=== PATIENT | male | born 1980 | race Caucasian/White ===

== ENCOUNTER 2017-03-09 21:43 | Inpatient (IN) | payer SELFPAY ==
[~2017-03-09] VITALS: Ht 172.7 cm; Wt 68.2 kg
[2017-03-09] MEDS ORDERED: SODIUM CHLOR 0.9% 1000 ML INJ 1,000 ML IV ONE (21:50)
[2017-03-09] MEDS ORDERED: NALOXONE HCL 2 MG/2 ML VIAL ONE (21:51)
--- NOTE | 2017-03-09 21:57 | PD ---
HPI Chief Complaint: Alcohol/Drug Intoxication Time Seen by Provider: 21:50 Travel History International Travel<30 days: No Contact w/Intl Traveler<30days: No Traveled to known affect area: No History of Present Illness HPI 37-year-old male with history of drug abuse, presents to the ER today brought in by EMS after he was found unresponsive by family. EMS state that he was initially apneic, given Narcan with good response to a GCS of 14. They have had to give him several doses of Narcan in route because of decreased responsiveness after a period of observation. He denies ingesting any medications or drugs. Modifying Factors: None Associated Signs & Symptoms: Suspected opiate overdose, responsive to Narcan Risk Factors: History of drug abuse [facility] Social History Tobacco Use: Yes Allergies-Medications (Allergen,Severity, Reaction): Coded Allergies: No Known Allergies (Unverified , 03/09/17) Reported Meds & Prescriptions Reported Meds & Active Scripts Active No Active Prescriptions or Reported Medications Review of Systems ROS Limitations: Intoxication Except as stated in HPI: all other systems reviewed are Neg Physical Exam Narrative GENERAL: Well-developed young male patient who is currently lethargic, answering some questions. In moderate distress. SKIN: Focused skin assessment warm/dry. HEAD: Atraumatic. Normocephalic. EYES: Pupils equal and round. No scleral icterus. No injection or drainage. ENT: No nasal bleeding or discharge. Mucous membranes pink and moist. NECK: Trachea midline. No JVD. CARDIOVASCULAR: Regular rate and rhythm. No murmur appreciated. RESPIRATORY: No accessory muscle use. Clear to auscultation. Breath sounds equal bilaterally. GASTROINTESTINAL: Abdomen soft, non-tender, nondistended. Hepatic and splenic margins not palpable. MUSCULOSKELETAL: No obvious deformities. No clubbing. No cyanosis. No edema. NEUROLOGICAL: Awake and alert. No obvious cranial nerve deficits. Motor grossly within normal limits. Normal speech. PSYCHIATRIC: Appropriate mood and affect; insight and judgment normal. Data Data Last Documented VS Vital Signs Date Time Temp Pulse Resp B/P Pulse Ox O2 Delivery O2 Flow Rate FiO2 03/09/17 23:21 101 16 129/71 99 Nasal Cannula 2 03/09/17 22:00 98.4 Orders Electrocardiogram (03/09/17 21:50) Complete Blood Count With Diff (03/09/17 21:50) Comprehensive Metabolic Panel (03/09/17 21:50) Urinalysis - C+S If Indicated (03/09/17 21:50) Iv Access Insert/Monitor (03/09/17 21:50) Ecg Monitoring (03/09/17 21:50) Oximetry (03/09/17 21:50) Naloxone Inj (Narcan Inj) (03/09/17 22:00) Sodium Chloride 0.9% Flush (Ns Flush) (03/09/17 22:00) Sodium Chlor 0.9% 1000 Ml Inj (Ns 1000 M (03/09/17 21:50) Drug Screen, Random Urine (03/09/17 21:50) Alcohol (Ethanol) (03/09/17 21:50) Salicylates (Aspirin) (03/09/17 21:50) Tylenol (Acetaminophen) (03/09/17 21:50) Naloxone Inj (Narcan Inj) (03/09/17 21:51) Naloxone Inj (Narcan Inj) (03/09/17 23:30) Labs Laboratory Tests Test 03/09/17 03/09/17 22:00 22:05 White Blood Count 12.7 TH/MM3 Red Blood Count 4.84 MIL/MM3 Hemoglobin 13.6 GM/DL Hematocrit 42.1 % Mean Corpuscular Volume 87.0 FL Mean Corpuscular Hemoglobin 28.1 PG Mean Corpuscular Hemoglobin 32.3 % Concent Red Cell Distribution Width 14.0 % Platelet Count 155 TH/MM3 Mean Platelet Volume 11.7 FL Neutrophils (%) (Auto) 61.8 % Lymphocytes (%) (Auto) 27.1 % Monocytes (%) (Auto) 10.3 % Eosinophils (%) (Auto) 0.4 % Basophils (%) (Auto) 0.4 % Neutrophils # (Auto) 7.8 TH/MM3 Lymphocytes # (Auto) 3.4 TH/MM3 Monocytes # (Auto) 1.3 TH/MM3 Eosinophils # (Auto) 0.1 TH/MM3 Basophils # (Auto) 0.1 TH/MM3 CBC Comment DIFF FINAL Differential Comment Sodium Level 142 MEQ/L Potassium Level 3.4 MEQ/L Chloride Level 105 MEQ/L Carbon Dioxide Level 27.7 MEQ/L Anion Gap 9 MEQ/L Blood Urea Nitrogen 15 MG/DL Creatinine 1.14 MG/DL Estimat Glomerular Filtration 73 ML/MIN Rate Random Glucose 170 MG/DL Calcium Level 8.3 MG/DL Total Bilirubin 0.4 MG/DL Aspartate Amino Transf 109 U/L (AST/SGOT) Alanine Aminotransferase 47 U/L (ALT/SGPT) Alkaline Phosphatase 75 U/L Total Protein 7.2 GM/DL Albumin 3.8 GM/DL Acetaminophen Level LESS THAN 2.0 MCG/ML Ethyl Alcohol Level LESS THAN 3 MG/DL Salicylates Level LESS THAN 1.7 MG/DL MDM Medical Decision Making Medical Screen Exam Complete: Yes Emergency Medical Condition: Yes Medical Record Reviewed: Yes Interpretation(s) Laboratory Tests Test 03/09/17 03/09/17 22:00 22:05 White Blood Count 12.7 TH/MM3 (4.0-11.0) Mean Platelet Volume 11.7 FL (7.0-11.0) Monocytes (%) (Auto) 10.3 % (0.0-8.0) Neutrophils # (Auto) 7.8 TH/MM3 (1.8-7.7) Monocytes # (Auto) 1.3 TH/MM3 (0-0.9) Potassium Level 3.4 MEQ/L (3.5-5.1) Estimat Glomerular Filtration 73 ML/MIN (>89) Rate Random Glucose 170 MG/DL (74-106) Calcium Level 8.3 MG/DL (8.5-10.1) Aspartate Amino Transf 109 U/L (15-37) (AST/SGOT) Acetaminophen Level LESS THAN 2.0 MCG/ML (10.0-30.0) Salicylates Level LESS THAN 1.7 MG/DL (2.8-20.0) Differential Diagnosis Suspected opiate overdoserule out coingestions versus metabolic issues Narrative Course Patient became lethargic in the ER and his saturations started to drop. He was given another 2 mg of Narcan and awakens. He now admits that he had taken several Lortabs and Percocet and cocaine today. At 11 PM, nurse for the patient tells me again that the patient is becoming lethargic and apneic and patient was given a second dose of 2 mg of Narcan. At this point, my plan would be to admit the patient for further treatment of opiate overdose. Considering he has required multiple doses of Narcan, Narcan drip will be initiated. Case was discussed with Dr. Huang, ibm bpm developer, for admission for further treatment. Aggregate critical care time was 25 minutes. Time to perform other separately billable procedures was not included in the critical care time. My time did not include minutes spent treating any other patients simultaneously or on activities that did not directly contribute to the patient's treatment. The services I provided to this patient were to treat and/or prevent clinically significant deterioration that could result in: Opiate overdose, apnea, respiratory arrest, I provided critical care services requiring my management, as noted below: Chart data review, documentation time, medication orders and management, vital sign assessments/reviewing monitor data, ordering and reviewing lab tests, ordering and interpreting/reviewing x-rays and diagnostic studies, care of the patient and discussion of the patient with the admitting physicians. Diagnosis Primary Impression: Opiate overdose Additional Impression: Apnea Admitting Information Admitting Physician Requests: Admit Scripts No Active Prescriptions or Reported Meds Hanane Rocha MD March 09, 2017 21:57
[2017-03-09 21:58] VITALS: RESP 18; O2SAT 98
[2017-03-09 22:00] VITALS: BP 139/87; PULSE 109; RESP 16; TEMP 98.4; O2SAT 99
[2017-03-09] MEDS ORDERED: SODIUM CHLORIDE 0.9% FLUSH 10 ML FLUSH IVF PRN (22:00)
[2017-03-09] MEDS ORDERED: NALOXONE HCL 2 MG/2 ML VIAL IVP ONE (22:00)
[2017-03-09 22:12] LABS: AUTOMATED NEUTROPHIL # 7.8 TH/MM3 (1.8-7.7); BASOPHIL # 0.1 TH/MM3 (0-0.2); BASOPHIL % 0.4 % (0.0-2.0); EOSINOPHIL # 0.1 TH/MM3 (0-0.4); EOSINOPHIL % 0.4 % (0.0-4.0); HEMATOCRIT 42.1 % (39.0-51.0); HEMO FLAGS DIFF FINAL; LYMPH % 27.1 % (9.0-44.0); LYMPHOCYTE # 3.4 TH/MM3 (1.0-4.8); MEAN CORPUSCULAR HEMOGLOBIN 28.1 PG (27.0-34.0); MEAN CORPUSCULAR HGB CONC 32.3 % (32.0-36.0); MONO % 10.3 % (0.0-8.0); NEUT % 61.8 % (16.0-70.0); PLATELET COUNT 155 TH/MM3 (150-450); RED BLOOD COUNT 4.84 MIL/MM3 (4.50-5.90); WHITE BLOOD COUNT 12.7 TH/MM3 (4.0-11.0)
[2017-03-09 22:49] LABS: ALT (GPT) 47 U/L (12-78); ANION GAP 9 MEQ/L (5-15); AST (GOT) 109 U/L (15-37); BICARBONATE 27.7 MEQ/L (21.0-32.0); BLOOD UREA NITROGEN 15 MG/DL (7-18); CHLORIDE 105 MEQ/L (98-107); GLOMERULAR FILTRATION RATE 73 ML/MIN (>89); POTASSIUM 3.4 MEQ/L (3.5-5.1); SODIUM (NA) 142 MEQ/L (136-145)
[2017-03-09 22:51] LABS: ALKALINE PHOSPHATASE 75 U/L (45-117); TOTAL BILIRUBIN ADULT 0.4 MG/DL (0.2-1.0)
[2017-03-09 23:10] LABS: ACETAMINOPHEN LESS THAN 2.0 MCG/ML (10.0-30.0)
[2017-03-09 23:21] VITALS: BP 129/71; PULSE 101; RESP 16; O2SAT 99
[2017-03-09] MEDS ORDERED: NALOXONE HCL 2 MG/2 ML VIAL IV PUSH ONE (23:30)
--- NOTE | 2017-03-09 23:50 | HHI.HP ---
HPI Service Critical Care Medicine Primary Care Physician No Primary Care Physician Admission Diagnosis opiate overdose/apnea Diagnosis: Travel History International Travel<30 Days: No Contact w/Intl Traveler <30 Da: No Traveled to Known Affected Are: No History of Present Illness 37-year-old male with history of polysubstance abuse, brought in today by EMS after he was found unresponsive by family. EMS state that he was initially apneic, given Narcan with good response to a GCS of 14. They have had to give him several doses of Narcan in route because of decreased responsiveness after a period of observation. He doesn't remember how much narcotic use he took at home as well as cocaine. Review of Systems ROS Unable to obtain patient's confused Past Family Social History Allergies: Coded Allergies: No Known Allergies (Unverified , 03/09/17) Past Medical History Polysubstance abuse Past Surgical History Unable to obtain Reported Medications Reported Meds & Active Scripts Active No Active Prescriptions or Reported Medications Active Ordered Medications Current Medications Medications (Trade) Dose Ordered Sig/Trish Route PRN Reason Start Time Stop Time Status Last Admin Dose Admin Naloxone HCl 4 mg/ Dextrose 250 ml @ 0 mls/hr TITRATE IV 03/09/17 23:30 03/10/17 00:14 Sodium Chloride (NS 1000 ml Inj) 1,000 ml @ 184 mls/hr Q5H27M IV 03/09/17 23:52 Sodium Chloride (NS Flush) 2 ml UNSCH PRN .XX FLUSH AFTER USING IV ACCESS 03/10/17 00:00 Sodium Chloride (NS Flush) 2 ml BID .XX 03/10/17 09:00 Acetaminophen (Tylenol) 650 mg Q6H PRN PO PAIN 1-10 AND/OR FEVER >101F 03/10/17 00:00 Lorazepam (Ativan Inj) 2 mg Q4H PRN IV Agitation/Sedation 03/10/17 00:00 Ondansetron HCl (Zofran Inj) 4 mg Q6H PRN IV NAUSEA OR VOMITING 03/10/17 00:00 Metoclopramide HCl (Reglan Inj) 10 mg Q6H PRN IV NAUSEA OR VOMITING 03/10/17 00:00 Docusate Sodium (Colace) 100 mg BID PO 03/10/17 09:00 Miscellaneous Information 1 Q361D XX 03/10/17 00:00 Chlorhexidine Gluconate (Chlorhexidine 2% Cloth) 3 pack Taper DAILY@04 TOP 03/10/17 04:00 03/06/18 03:59 Chlorhexidine Gluconate (Chlorhexidine 2% Cloth) 3 pack UNSCH PRN TOP HYGIENIC CARE 03/10/17 00:00 Family History Noncontributory Social History Polysubstance and tobacco abuse Physical Exam Vital Signs Vital Signs Date Time Temp Pulse Resp B/P Pulse Ox O2 Delivery O2 Flow Rate FiO2 03/09/17 23:21 101 16 129/71 99 Nasal Cannula 2 03/09/17 22:00 98.4 109 16 139/87 99 03/09/17 21:58 18 98 Room Air Physical Exam GENERAL: Well-nourished, well-developed patient. With confused altered mental status SKIN: Warm and dry. HEAD: Normocephalic. EYES: No scleral icterus. No injection or drainage. NECK: Supple, trachea midline. No JVD or lymphadenopathy. CARDIOVASCULAR: Regular rate and rhythm without murmurs, gallops, or rubs. RESPIRATORY: Breath sounds equal bilaterally. No accessory muscle use. GASTROINTESTINAL: Abdomen soft, non-tender, nondistended. MUSCULOSKELETAL: No cyanosis, or edema. BACK: Nontender without obvious deformity. No CVA tenderness. EXTREMITIES: No clubbing cyanosis or edema Laboratory Laboratory Tests Test 03/09/17 03/09/17 22:00 22:05 White Blood Count 12.7 Red Blood Count 4.84 Hemoglobin 13.6 Hematocrit 42.1 Mean Corpuscular Volume 87.0 Mean Corpuscular Hemoglobin 28.1 Mean Corpuscular Hemoglobin 32.3 Concent Red Cell Distribution Width 14.0 Platelet Count 155 Mean Platelet Volume 11.7 Neutrophils (%) (Auto) 61.8 Lymphocytes (%) (Auto) 27.1 Monocytes (%) (Auto) 10.3 Eosinophils (%) (Auto) 0.4 Basophils (%) (Auto) 0.4 Neutrophils # (Auto) 7.8 Lymphocytes # (Auto) 3.4 Monocytes # (Auto) 1.3 Eosinophils # (Auto) 0.1 Basophils # (Auto) 0.1 CBC Comment DIFF FINAL Differential Comment Sodium Level 142 Potassium Level 3.4 Chloride Level 105 Carbon Dioxide Level 27.7 Anion Gap 9 Blood Urea Nitrogen 15 Creatinine 1.14 Estimat Glomerular Filtration 73 Rate Random Glucose 170 Calcium Level 8.3 Total Bilirubin 0.4 Aspartate Amino Transf 109 (AST/SGOT) Alanine Aminotransferase 47 (ALT/SGPT) Alkaline Phosphatase 75 Total Protein 7.2 Albumin 3.8 Acetaminophen Level LESS THAN 2.0 Ethyl Alcohol Level LESS THAN 3 Salicylates Level LESS THAN 1.7 Result Diagram: 03/09/17219903/09/172199 Assessment and Plan Assessment and Plan Altered mental status - Due to drug overdose - Narcan when necessary - Monitor for withdrawal - Monitor for airway protection - Admit to ICU - ABG to assess for Ph - CIWA protocol - IV fluid hydration DVT GI prophylaxis - Early aggressive mobilization - Regular diet Critical Care: The total critical care time was 35 minutes. Time to perform other separately billable procedures was not included in the critical care time. Skip Huang MD March 09, 2017 23:50
[2017-03-10] VITALS (12 sets, daily range): BP systolic 88–108; BP diastolic 54–66; PULSE 60–76; RESP 9–19; TEMP 97.8–98.5; O2SAT 95–100
[2017-03-10] MEDS ORDERED: ACETAMINOPHEN 325 MG TAB PO PRN
[2017-03-10] MEDS ORDERED: CHLORHEXIDINE GLUCONATE 2 % 1 PACK (2 CLOTHS) TOP PRN
[2017-03-10] MEDS ORDERED: METOCLOPRAMIDE HCL 10 MG/2 ML VIAL IV PRN
[2017-03-10] MEDS ORDERED: RESP: ALBUTEROL 2.5 MG/IPRATROPIUM 0.5 MG NEB (PRN) INH
[2017-03-10] MEDS ORDERED: SODIUM CHLORIDE 0.9% FLUSH 10 ML FLUSH PRN
[2017-03-10] MEDS ORDERED: ONDANSETRON HCL 4 MG/2 ML VIAL IV PRN
[2017-03-10] MEDS ORDERED: LORazepam 2 MG/ML VIAL IV PRN
[2017-03-10] MEDS ORDERED: MISCELLANEOUS NURSING INFORMATION XX SCH
[2017-03-10] MEDS: NALOXONE INJ 4 MG in DEXTROSE 5% IN WATER INJ 246 ML IV SCH ×4 (00:14→14:28)
[2017-03-10] MEDS: SODIUM CHLOR 0.9% 1000 ML INJ 1,000 ML IV SCH ×6 (00:56→22:50)
[2017-03-10 01:02] LABS: BLOOD GAS VENOUS HCO3 24 mmol/L (22-26); BLOOD GAS VENOUS O2 CONTENT 16.4 Vol % (9.0-17.0); BLOOD GAS VENOUS O2 HGB SAT 91 % (70-76); BLOOD GAS VENOUS PCO2 50 mmHg (44-48); BLOOD GAS VENOUS PO2 75 mmHg (35-40); TEMP CORR TO 98.6
[2017-03-10 01:03] LABS: CRITICAL VALUE YES; FIO2 21 %; OXYGEN DEVICE RA
[2017-03-10 01:04] LABS: DRAW SITE PIV
[2017-03-10 01:05] LABS: STAT NO
[2017-03-10 01:18] LABS: AMPHETAMINE, URINE NEG (NEG); BARBITURATES, URINE NEG (NEG); COCAINE, URINE POS (NEG)
[2017-03-10 01:26] LABS: BLOOD, URINE NEG (NEG); COMMENT (UR) CULT NOT INDICATED; CULTURE IF INDICATED CULT NOT INDICATED; GLUCOSE,URINE NEG (NEG); KETONE, URINE NEG (NEG); MUCUS URINE FEW /lpf (OCC); NITRITE,URINE NEG (NEG); URINE COLOR YELLOW (YELLW/STRAW)
[2017-03-10] MEDS: CHLORHEXIDINE GLUCONATE 2 % 1 PACK (2 CLOTHS) TOP SCH (04:00)
[2017-03-10 05:57] LABS: BASOPHIL % 0.4 % (0.0-2.0); EOSINOPHIL % 0.4 % (0.0-4.0); HEMATOCRIT 37.1 % (39.0-51.0); HEMO FLAGS DIFF FINAL; LYMPH % 19.1 % (9.0-44.0); LYMPHOCYTE # 1.4 TH/MM3 (1.0-4.8); MEAN CELL VOLUME 87.1 FL (80.0-100.0); MEAN CORPUSCULAR HEMOGLOBIN 28.3 PG (27.0-34.0); MEAN CORPUSCULAR HGB CONC 32.5 % (32.0-36.0); NEUT % 70.1 % (16.0-70.0); PLATELET COUNT 122 TH/MM3 (150-450); RED BLOOD COUNT 4.26 MIL/MM3 (4.50-5.90); RED CELL DISTRIBUTION WIDTH 13.9 % (11.6-17.2); WHITE BLOOD COUNT 7.2 TH/MM3 (4.0-11.0)
[2017-03-10 06:22] LABS: ANION GAP 8 MEQ/L (5-15); AST (GOT) 83 U/L (15-37); BICARBONATE 27.3 MEQ/L (21.0-32.0); BLOOD UREA NITROGEN 13 MG/DL (7-18); CHLORIDE 107 MEQ/L (98-107); GLOMERULAR FILTRATION RATE 105 ML/MIN (>89); MAGNESIUM 2.2 MG/DL (1.5-2.5); POTASSIUM 4.1 MEQ/L (3.5-5.1); SODIUM (NA) 142 MEQ/L (136-145)
[2017-03-10 06:25] LABS: ALKALINE PHOSPHATASE 61 U/L (45-117); ALT (GPT) 45 U/L (12-78); TOTAL BILIRUBIN ADULT 0.6 MG/DL (0.2-1.0)
[2017-03-10] MEDS: DOCUSATE SODIUM 100 MG CAP PO SCH ×2 (09:00→19:54)
[2017-03-10] MEDS: SODIUM CHLORIDE 0.9% FLUSH 10 ML FLUSH SCH ×2 (10:52→19:55)
--- NOTE | 2017-03-10 16:08 | EKG ---
Date Performed: 03/09/2017 Time Performed: 21:58:55 PTAGE: 37 years EKG: SINUS TACHYCARDIA NONSPECIFIC T-WAVE ABNORMALITY ABNORMAL RHYTHM ECG NO PREVIOUS TRACING DOCTOR: Latia Villatoro Interpretating Date/Time 03/10/2017 16:07:16
--- NOTE | 2017-03-10 16:49 | HHI.PR ---
Subjective Remarks patient admits to abuse of pain meds- "buy them off the street" no complains , no nausea or vomiting- 100% Objective Vitals Vital Signs Date Time Temp Pulse Resp B/P Pulse Ox O2 Delivery O2 Flow Rate FiO2 03/10/17 16:00 98.3 68 96/54 03/10/17 16:00 64 03/10/17 14:00 75 03/10/17 12:00 98.0 60 101/64 03/10/17 12:00 68 03/10/17 10:00 60 03/10/17 08:00 97.8 61 12 88/56 03/10/17 08:00 61 03/10/17 06:59 100 Nasal Cannula 2.00 03/10/17 06:00 62 03/10/17 04:00 97.8 62 9 93/61 98 03/10/17 04:00 62 03/10/17 02:00 76 03/09/17 23:21 101 16 129/71 99 Nasal Cannula 2 03/09/17 22:00 98.4 109 16 139/87 99 03/09/17 21:58 18 98 Room Air I/O 03/09/17 03/09/17 03/09/17 03/10/17 03/10/17 03/10/17 06:59 14:59 22:59 06:59 14:59 22:59 Intake Total 1375 ml 2268 ml Output Total 0 ml 725 ml Balance 1375 ml 1543 ml Intake Oral 600 ml 440 ml IV Total 775 ml 1828 ml Output Urine Total 0 ml 725 ml # Bowel Movements 0 0 Result Diagram: 03/10/17 0533 03/10/17 0533 Objective Remarks anicteric, awake and alert, NAD pupils equally reactive neck supple lungs clear regular rhythm abdomen soft, nontender extremities no edema A/P Assessment and Plan 37 years old male- admits to history of addiction to painmeds and states was doing quite well for a year and recently relapse. patient denies any depression , suicidal ideations Altered mental status - Due to drug abuse- MS improved - Narcan when necessary - Monitor for withdrawal - Monitor for airway protection -counselled extensively - check CK level DVT GI prophylaxis - Early aggressive mobilization - Regular diet Substance abuse- patient buys pain meds (percocet) them off the street transfer to medical floor Ike Fernandez MD March 10, 2017 16:49 Ike Fernandez MD March 10, 2017 16:49
[2017-03-10 20:26] LABS: CKMB 38.7 NG/ML (0.5-3.6)
[2017-03-11] VITALS (9 sets, daily range): BP systolic 105–115; BP diastolic 62–74; PULSE 61–81; RESP 15–20; TEMP 98.3–98.5; O2SAT 94–96
[2017-03-11] MEDS: CHLORHEXIDINE GLUCONATE 2 % 1 PACK (2 CLOTHS) TOP SCH (03:47)
[2017-03-11 06:04] LABS: AUTOMATED NEUTROPHIL # 4.4 TH/MM3 (1.8-7.7); BASOPHIL % 0.3 % (0.0-2.0); EOSINOPHIL # 0.1 TH/MM3 (0-0.4); EOSINOPHIL % 0.9 % (0.0-4.0); HEMATOCRIT 38.3 % (39.0-51.0); HEMO FLAGS DIFF FINAL; LYMPH % 24.6 % (9.0-44.0); LYMPHOCYTE # 1.7 TH/MM3 (1.0-4.8); MEAN CELL VOLUME 87.7 FL (80.0-100.0); MEAN CORPUSCULAR HEMOGLOBIN 28.4 PG (27.0-34.0); MEAN CORPUSCULAR HGB CONC 32.4 % (32.0-36.0); MONO % 7.9 % (0.0-8.0); NEUT % 66.3 % (16.0-70.0); PLATELET COUNT 118 TH/MM3 (150-450); RED BLOOD COUNT 4.37 MIL/MM3 (4.50-5.90); WHITE BLOOD COUNT 6.7 TH/MM3 (4.0-11.0)
[2017-03-11 06:37] LABS: ANION GAP 7 MEQ/L (5-15); AST (GOT) 49 U/L (15-37); BLOOD UREA NITROGEN 9 MG/DL (7-18); CHLORIDE 109 MEQ/L (98-107); GLOMERULAR FILTRATION RATE 119 ML/MIN (>89); POTASSIUM 3.7 MEQ/L (3.5-5.1); SODIUM (NA) 142 MEQ/L (136-145)
[2017-03-11 06:41] LABS: ALKALINE PHOSPHATASE 55 U/L (45-117); ALT (GPT) 38 U/L (12-78); CREATINE KINASE 873 U/L (39-308); TOTAL BILIRUBIN ADULT 0.4 MG/DL (0.2-1.0)
[2017-03-11 07:18] LABS: CKMB 19.2 NG/ML (0.5-3.6)
[2017-03-11] MEDS: SODIUM CHLOR 0.9% 1000 ML INJ 1,000 ML IV SCH ×2 (08:23→15:03)
[2017-03-11] MEDS: SODIUM CHLORIDE 0.9% FLUSH 10 ML FLUSH SCH (08:57)
[2017-03-11] MEDS: DOCUSATE SODIUM 100 MG CAP PO SCH (08:59)
--- NOTE | 2017-03-11 14:00 | HHI.PR ---
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 Objective Vitals Vital Signs Date Time Temp Pulse Resp B/P Pulse Ox O2 Delivery O2 Flow Rate FiO2 03/11/17 12:00 73 03/11/17 12:00 98.5 73 20 107/62 95 03/11/17 10:00 79 03/11/17 08:00 71 03/11/17 08:00 98.4 74 17 110/64 94 03/11/17 06:00 81 03/11/17 04:00 98.3 62 15 115/74 96 03/11/17 04:00 62 03/11/17 02:00 62 03/11/17 00:00 98.4 61 16 105/70 95 03/11/17 00:00 61 03/10/17 22:00 60 03/10/17 20:00 72 03/10/17 20:00 98.5 72 19 108/66 95 03/10/17 18:00 69 03/10/17 16:00 98.3 68 96/54 03/10/17 16:00 64 03/10/17 14:00 75 I/O 03/10/17 03/10/17 03/10/17 03/11/17 03/11/17 03/11/17 06:59 14:59 22:59 06:59 14:59 22:59 Intake Total 1375 ml 2268 ml 1484 ml 1323 ml Output Total 0 ml 725 ml 600 ml 1300 ml Balance 1375 ml 1543 ml 884 ml 23 ml Intake Oral 600 ml 440 ml 460 ml 240 ml IV Total 775 ml 1828 ml 1024 ml 1083 ml Output Urine Total 0 ml 725 ml 600 ml 1300 ml # Bowel Movements 0 0 Result Diagram: 03/11/17 04503/11/17 045 Objective Remarks anicteric, awake and alert, NAD pupils equally reactive neck supple lungs clear regular rhythm abdomen soft, nontender extremities no edema A/P Assessment and Plan 37 years old male- admits to history of addiction to painmeds and states was doing quite well for a year and recently relapse. patient denies any depression , suicidal ideations Altered mental status - Due to drug abuse- MS improved- resolved Rhabdomyolysis- good urine output. IVF encourge po fluids on DC Substance abuse- patient buys pain meds (percocet) them off the street Mom confirms that patient does not use alcohol counselled extensively DC today diet as tolerated activity as tolerated No meds Patient will set up with a PCP d/w and torts law professor- they will offer support and get him a program in their yazidism Ike Fernandez MD March 11, 2017 14:00
== END 2017-03-11 16:15 | disposition home or self-care (01) | DRG 918 ==
LOC: NEPC 21:43 → NEDA 23:28 → HIME 03-10 01:30
PROVIDERS: ADMIT Internal Medicine Critical Care Medicine; ATTEND Internal Medicine
DX: T40.2X1A Poisoning by other opioids, accidental (unintentional), initial encounter (principal); M62.82 Rhabdomyolysis; F19.20 Other psychoactive substance dependence, uncomplicated; F17.200 Nicotine dependence, unspecified, uncomplicated
CPT/HCPCS: 80053; 80307; 81001; 82550; 82552; 82805; 83735; 84100; 85025; 87641; 93005; 96374; 96376; J2310; J2405; J7030; J7060

== ENCOUNTER 2017-07-23 06:38 | Emergency (ER) | payer SELFPAY ==
[~2017-07-23] VITALS: Ht 170.2 cm; Wt 65.0 kg
[2017-07-23 06:43] VITALS: BP 138/79; PULSE 100; RESP 16; TEMP 98.4; O2SAT 99
[2017-07-23 07:03] VITALS: BP 142/78; PULSE 98; RESP 16; O2SAT 98
[2017-07-23] MEDS ORDERED: SODIUM CHLOR 0.9% 1000 ML INJ 1,000 ML IV ONE (07:32)
[2017-07-23 07:37] VITALS: RESP 18; O2SAT 98
[2017-07-23] MEDS ORDERED: SODIUM CHLORIDE 0.9% FLUSH 10 ML FLUSH IVF PRN (07:45)
[2017-07-23] MEDS ORDERED: diphenhydrAMINE HCL 50 MG/ML VIAL IVP ONE (07:45)
[2017-07-23] MEDS ORDERED: METOCLOPRAMIDE HCL 10 MG/2 ML VIAL IVP ONE (07:45)
[2017-07-23 07:46] LABS: BASOPHIL % 0.2 % (0.0-2.0); EOSINOPHIL % 0.4 % (0.0-4.0); HEMATOCRIT 43.3 % (39.0-51.0); HEMO FLAGS DIFF FINAL; LYMPH % 4.9 % (9.0-44.0); LYMPHOCYTE # 0.5 TH/MM3 (1.0-4.8); MEAN CORPUSCULAR HEMOGLOBIN 29.7 PG (27.0-34.0); MEAN CORPUSCULAR HGB CONC 33.8 % (32.0-36.0); MONO % 0.4 % (0.0-8.0); NEUT % 94.1 % (16.0-70.0); PLATELET COUNT 134 TH/MM3 (150-450); RED BLOOD COUNT 4.92 MIL/MM3 (4.50-5.90); RED CELL DISTRIBUTION WIDTH 13.9 % (11.6-17.2); WHITE BLOOD COUNT 10.6 TH/MM3 (4.0-11.0)
[2017-07-23 08:02] LABS: ALT (GPT) 17 U/L (12-78); ANION GAP 6 MEQ/L (5-15); AST (GOT) 10 U/L (15-37); BICARBONATE 26.6 MEQ/L (21.0-32.0); BLOOD UREA NITROGEN 7 MG/DL (7-18); CHLORIDE 107 MEQ/L (98-107); GLOMERULAR FILTRATION RATE 77 ML/MIN (>89); POTASSIUM 3.8 MEQ/L (3.5-5.1); SODIUM (NA) 140 MEQ/L (136-145)
[2017-07-23 08:05] LABS: ALKALINE PHOSPHATASE 77 U/L (45-117); TOTAL BILIRUBIN ADULT 0.7 MG/DL (0.2-1.0)
--- NOTE | 2017-07-23 08:26 | RADRPT ---
EXAM DATE/TIME: 07/23/2017 07:51 [facility] COMPARISON: No previous studies available for comparison. INDICATIONS : Migraine for 2 days RADIATION DOSE: 56.45 CTDIvol (mGy) MEDICAL HISTORY : None SURGICAL HISTORY : None. ENCOUNTER: Initial ACUITY: 1 day PAIN SCALE: 10/10 LOCATION: cranial TECHNIQUE: Multiple contiguous axial images were obtained of the head. Using automated exposure control and adj ustment of the mA and/or kV according to patient size, radiation dose was kept as low as reasonably a chievable to obtain optimal diagnostic quality images. DICOM format image data is available electro nically for review and comparison. FINDINGS: CEREBRUM: The ventricles are normal for age. No evidence of midline shift, mass lesion, hemorrhage or acute in farction. No extra-axial fluid collections are seen. POSTERIOR FOSSA: The cerebellum and brainstem are intact. The 4th ventricle is midline. The cerebellopontine angle i s unremarkable. EXTRACRANIAL: The visualized portion of the orbits is intact. SKULL: The calvaria is intact. No evidence of skull fracture. CONCLUSION: 1. No evidence of acute intracranial pathology. No masses are identified. Rivas Miranda MD on July 23, 2017 at 8:24 Board Certified Radiologist. This report was verified electronically.
--- NOTE | 2017-07-23 08:30 | PD ---
HPI Chief Complaint: Headache Time Seen by Provider: 07:32 Travel History International Travel<30 days: No Contact w/Intl Traveler<30days: No Traveled to known affect area: No History of Present Illness HPI 37-year-old male with history of intermittent headaches never officially diagnosed, presents to the ER today with 2 days history of a headache which started yesterday and then went away after he went to sleep and then started again this morning. He states that it was a 7-8 out of 10 originally but is now 3-4 out of 10. He denies any neck stiffness, fevers, vomiting, or any other symptoms. He states that he gets intermittent headaches and his brother gets them to. He thinks they are migraine headaches but he was never officially diagnosed. Modifying Factors: None Associated Signs & Symptoms: Headaches Risk Factors: History of intermittent headaches PFSH Past Medical History Arthritis: No Asthma: No Autoimmune Disease: No Anxiety: Yes Depression: No Heart Rhythm Problems: No Cancer: No Cardiovascular Problems: No High Cholesterol: No Chest Pain: No Congestive Heart Failure: No COPD: No Cerebrovascular Accident: No Diabetes: No Diminished Hearing: No Endocrine: No Gastrointestinal Disorders: No GERD: No Genitourinary: No Headaches: No Hiatal Hernia: No Hypertension: No Immune Disorder: No Implanted Vascular Access Dvce: No Kidney Stones: No Musculoskeletal: No Neurologic: No Psychiatric: No Reproductive: No Respiratory: No Immunizations Current: Yes Migraines: No Renal Failure: No Seizures: Yes (drug use related) Sleep Apnea: No Thyroid Disease: No Ulcer: No Tetanus Vaccination: Unknown Influenza Vaccination: No Past Surgical History Other Surgery: No Social History Alcohol Use: No Tobacco Use: Yes Substance Use: Yes (past drug abuser plus current event) Allergies-Medications (Allergen,Severity, Reaction): Coded Allergies: No Known Allergies (Unverified , 07/23/17) Reported Meds & Prescriptions Reported Meds & Active Scripts Active No Active Prescriptions or Reported Medications Review of Systems Except as stated in HPI: all other systems reviewed are Neg Physical Exam Narrative GENERAL: Well-developed young male patient currently and mild distress. Awake and oriented 3. SKIN: Focused skin assessment warm/dry. HEAD: Atraumatic. Normocephalic. EYES: Pupils equal and round. No scleral icterus. No injection or drainage. ENT: No nasal bleeding or discharge. Mucous membranes pink and moist. NECK: Trachea midline. No JVD. Supple. CARDIOVASCULAR: Regular rate and rhythm. No murmur appreciated. RESPIRATORY: No accessory muscle use. Clear to auscultation. Breath sounds equal bilaterally. GASTROINTESTINAL: Abdomen soft, non-tender, nondistended. Hepatic and splenic margins not palpable. MUSCULOSKELETAL: No obvious deformities. No clubbing. No cyanosis. No edema. NEUROLOGICAL: Awake and alert. No obvious cranial nerve deficits. Motor grossly within normal limits. Normal speech. PSYCHIATRIC: Appropriate mood and affect; insight and judgment normal. Data Data Last Documented VS Vital Signs Date Time Temp Pulse Resp B/P (MAP) Pulse Ox O2 Delivery O2 Flow Rate FiO2 07/23/17 07:37 18 98 Room Air 07/23/17 07:03 98 07/23/17 06:43 98.4 Orders Orders Complete Blood Count With Diff (07/23/17 07:32) Comprehensive Metabolic Panel (07/23/17 07:32) Ct Brain W/O Iv Contrast(Rout) (07/23/17 07:32) Ecg Monitoring (07/23/17 07:32) Iv Access Insert/Monitor (07/23/17 07:32) Oximetry (07/23/17 07:32) Sodium Chloride 0.9% Flush (Ns Flush) (07/23/17 07:45) Diphenhydramine Inj (Benadryl Inj) (07/23/17 07:45) Metoclopramide Inj (Reglan Inj) (07/23/17 07:45) Sodium Chlor 0.9% 1000 Ml Inj (Ns 1000 M (07/23/17 07:32) Labs Laboratory Tests Test 07/23/17 07:36 White Blood Count 10.6 TH/MM3 Red Blood Count 4.92 MIL/MM3 Hemoglobin 14.6 GM/DL Hematocrit 43.3 % Mean Corpuscular Volume 88.0 FL Mean Corpuscular Hemoglobin 29.7 PG Mean Corpuscular Hemoglobin Concent 33.8 % Red Cell Distribution Width 13.9 % Platelet Count 134 TH/MM3 Mean Platelet Volume 12.1 FL Neutrophils (%) (Auto) 94.1 % Lymphocytes (%) (Auto) 4.9 % Monocytes (%) (Auto) 0.4 % Eosinophils (%) (Auto) 0.4 % Basophils (%) (Auto) 0.2 % Neutrophils # (Auto) 10.0 TH/MM3 Lymphocytes # (Auto) 0.5 TH/MM3 Monocytes # (Auto) 0.0 TH/MM3 Eosinophils # (Auto) 0.0 TH/MM3 Basophils # (Auto) 0.0 TH/MM3 CBC Comment DIFF FINAL Differential Comment Blood Urea Nitrogen 7 MG/DL Creatinine 1.09 MG/DL Random Glucose 106 MG/DL Total Protein 7.0 GM/DL Albumin 3.3 GM/DL Calcium Level 7.9 MG/DL Alkaline Phosphatase 77 U/L Aspartate Amino Transf (AST/SGOT) 10 U/L Alanine Aminotransferase (ALT/SGPT) 17 U/L Total Bilirubin 0.7 MG/DL Sodium Level 140 MEQ/L Potassium Level 3.8 MEQ/L Chloride Level 107 MEQ/L Carbon Dioxide Level 26.6 MEQ/L Anion Gap 6 MEQ/L Estimat Glomerular Filtration Rate 77 ML/MIN [facility] Medical Decision Making Medical Screen Exam Complete: Yes Emergency Medical Condition: Yes Medical Record Reviewed: Yes Interpretation(s) Laboratory Tests Test 07/23/17 07:36 Platelet Count 134 TH/MM3 (150-450) Mean Platelet Volume 12.1 FL (7.0-11.0) Neutrophils (%) (Auto) 94.1 % (16.0-70.0) Lymphocytes (%) (Auto) 4.9 % (9.0-44.0) Neutrophils # (Auto) 10.0 TH/MM3 (1.8-7.7) Lymphocytes # (Auto) 0.5 TH/MM3 (1.0-4.8) Albumin 3.3 GM/DL (3.4-5.0) Calcium Level 7.9 MG/DL (8.5-10.1) Aspartate Amino Transf (AST/SGOT) 10 U/L (15-37) Estimat Glomerular Filtration Rate 77 ML/MIN (>89) Differential Diagnosis Headache: Migraine headaches versus tension headache versus Narrative Course Vital signs are stable in the ER. Patient has no meningeal signs. CAT scan did not show any signs of acute intracranial processes. Patient was given IV Reglan and Benadryl in the ER. On reevaluation at 9 AM, he is feeling improved , states the headache has gone away completely. At this point, patient has had history of headaches in the past and it appears that similar headaches have run in the family, symptoms are more indicative of migraine headaches and my plan would be to release him with symptomatic relief. Return for any worsening in symptoms as necessary. Return for any worsening in headaches, stiff neck, neurological symptoms, or new issues. Patient states understanding. Diagnosis Primary Impression: Headache Med/Other Pt SpecificInfo: Prescription(s) given Scripts Promethazine (Phenergan) 25 Mg Tablet 25 MG PO Q6H Y for NAUSEA OR VOMITING, #7 TAB 0 Refills Prov: Hanane Rocha MD 07/23/17 Disposition: 01 DISCHARGE HOME Condition: Stable Hanane Rocha MD Jul 23, 2017 08:30
[2017-07-23] MEDS ORDERED: PROM25TA10 PO (09:07)
[2017-07-23 09:44] VITALS: BP 117/57
== END 2017-07-23 10:13 | disposition home or self-care (01) ==
LOC: NEPE 06:38
DX: R51 Headache (principal); F41.9 Anxiety disorder, unspecified; R56.9 Unspecified convulsions; Z72.0 Tobacco use
CPT/HCPCS: 70450; 80053; 85025; 96374; 96375; 99285; J1200; J2765; J7030